=== PATIENT | female | born 2000 | race Caucasian/White ===

== ENCOUNTER 2023-10-01 13:38 | Outpatient (CLI) | payer OTHER, SELFPAY ==
[2023-10-01 17:18] LABS: Chlamydia DNA Amplified* NOT DETECTED (No Detected); GC DNA Amplified* NOT DETECTED (No Detected)
== END 2023-10-01 13:39 | disposition home or self-care (01) ==
LOC: KYNREF 13:38
PROVIDERS: PCP Nurse Practitioner Family; Visit Provider Nurse Practitioner Family
DX: Z11.3 Encounter for screening for infections with a predominantly sexual mode of transmission (principal)
CPT/HCPCS: 87491; 87591

== ENCOUNTER 2023-12-30 13:50 | Outpatient (CLI) | payer OTHER, SELFPAY | END 2023-12-30 13:51 | disposition home or self-care (01) | LOC: RAD 13:51 | PROVIDERS: PCP Nurse Practitioner Family; Visit Provider Nurse Practitioner Family | DX: R00.2 Palpitations (principal); I47.20 Ventricular tachycardia, unspecified | CPT/HCPCS: 93306 ==

== ENCOUNTER 2024-01-06 08:39 | Outpatient (CLI) | payer OTHER, SELFPAY | END 2024-01-06 08:40 | disposition home or self-care (01) | LOC: NFLDREF 01-10 10:42 | PROVIDERS: PCP Nurse Practitioner Family; Referring Provider Nurse Practitioner Family; Visit Provider Nurse Practitioner Family | DX: R00.2 Palpitations; I47.10 Supraventricular tachycardia, unspecified | CPT/HCPCS: 80053; 83735; 84443 ==

== ENCOUNTER 2024-04-03 09:36 | Outpatient (CLI) | payer OTHER, SELFPAY ==
[2024-04-03 15:28] LABS: Chlamydia DNA Amplified* NOT DETECTED (No Detected); GC DNA Amplified* NOT DETECTED (No Detected)
== END 2024-04-03 09:37 | disposition home or self-care (01) ==
PROVIDERS: PCP Nurse Practitioner Family; Referring Provider Nurse Practitioner Family; Visit Provider Nurse Practitioner Family
DX: R30.0 Dysuria (principal); N89.8 Other specified noninflammatory disorders of vagina
CPT/HCPCS: 81001; 87086; 87252; 87491; 87591